=== PATIENT | male | born 2000 | race Caucasian/White ===

== ENCOUNTER 2024-12-28 19:21 | Emergency (ER) | payer BC ==
[2024-12-28] MEDS ORDERED: Lidocaine 1% 5 ML VIAL INFILT ONE (19:22)
[2024-12-28] MEDS: Diphtheria,Pertussis(Acell),Tetanus Vaccine 0.5 ML Syringe IM ONE (20:19)
== END 2024-12-28 20:25 | disposition home or self-care (01) ==
LOC: FB.ED 19:21
DX: S51.812A Laceration without foreign body of left forearm, initial encounter (principal); Z88.1 Allergy status to other antibiotic agents; Z79.899 Other long term (current) drug therapy; W21.07XA Struck by softball, initial encounter
CPT/HCPCS: 12004; 90471; 90715; 99282; J2003